=== PATIENT | female | born 1965 | race Caucasian/White ===

== ENCOUNTER 2018-10-03 10:55 | Emergency (ER) | payer OTHER ==
[~2018-10-03] VITALS: Ht 157.5 cm; Wt 82.9 kg
[~2018-10-03 10:55] MED LIST: ALBU18HF IH; HYDR-3498 PO; IBUP-1542 PO; LORA-186 PO; LORA1TAB PO; PANT20TA3 PO; PRAV40TA76 PO
[2018-10-03 11:02] VITALS: Ht 157.5 cm; Wt 82.9 kg
[2018-10-03] MEDS ORDERED: BELLADONNA/PHENOBARBITAL TAB PO STA (12:00)
[2018-10-03] MEDS ORDERED: FAMOTIDINE 20 MG INJ IV STA (12:00)
[2018-10-03] MEDS ORDERED: LIDOCAINE/MYLANTA 40 ML BTL PO STA (12:00)
[2018-10-03] MEDS ORDERED: SOD CHLORIDE 0.9% 500 ML IV STA (12:00)
[2018-10-03] MEDS ORDERED: ONDANSETRON 4 MG INJ IV STA (12:00)
[2018-10-03] MEDS ORDERED: FLUO20CA22 ORAL (12:43)
[2018-10-03] MEDS ORDERED: SULI150T PO (12:43)
[2018-10-03] MEDS ORDERED: METF-849 PO (12:43)
[2018-10-03] MEDS ORDERED: OMEP20CA16 PO (12:43)
--- NOTE | 2018-10-03 14:52 | ERD ---
ER Documentation Chief Complaint Chief Complaint ABD PAIN X 1 MONTH...WORSE WITH EATING HPI This is a 53-year-old female with a past medical history of hypertension, hyperlipidemia, GERD previously on Protonix and Prilosec, known cholelithiasis with previous episodes of biliary colic over the last month who is presenting with an exacerbated episode today. The patient endorses epigastric and right upper quadrant tenderness with nausea but no vomiting. It is exacerbated by eating. She does not endorse any alleviating factors. She does not endorse constipation or diarrhea. She does not endorse black or bloody or tarry stools. She denies any dysuria or hematuria or urgency or frequency. She does not endorse any vaginal complaints. The patient denies feeling sick recently. The patient denies fever or chills. The patient has had no headache or vision changes. The patient does not endorse neck or back pain. The patient denies lightheadedness or dizziness. The patient has had no chest pain or trouble breathing. The patient has had no focal deficits. The patient has had no weakness or numbness or tingling to the face or extremities. ROS All systems reviewed and are negative except as per history of present illness. Medications Home Meds Reported Medications Metformin* (Glucophage*) 500 Mg Tab, 500 MG PO WITH BREAKFAST DINNE, #30 TAB 10/03/18 Sulindac* (Sulindac*) 150 Mg Tablet, 150 MG PO BID, TAB 10/03/18 Omeprazole* (Omeprazole*) 20 Mg Capsule.dr, 20 MG PO DAILY, #30 CAP 10/03/18 Fluoxetine Hcl* (Fluoxetine Hcl*) 20 Mg Capsule, 1 CAP ORAL DAILY 10/03/18 Lorazepam* (Lorazepam*) 1 Mg Tablet, 1 MG PO DAILY PRN for ANXIETY, TAB 10/24/14 Discontinued Reported Medications Loratadine* (Claritin*) 10 Mg Tablet, 10 MG PO DAILY, TAB 10/24/14 Albuterol Sulfate* (Ventolin HFA*) 18 Gm Hfa.aer.ad, 1 PUFF IH DAILY, EA 10/24/14 Pantoprazole* (Pantoprazole*) 20 Mg Tablet.dr, 20 MG PO DAILY, TAB 10/24/14 Pravastatin Sodium* (Pravastatin Sodium*) 40 Mg Tablet, 40 MG PO HS, TAB 8/19/15 Discontinued Scripts Ibuprofen* (Motrin*) 600 Mg Tab, 600 MG PO Q6, #15 TAB Prov:DARREN ANGUIANO MD 02/08/16 Hydrocodone Bit/Acetaminophen (Anexsia 5-325 Mg Tablet) 1 Tab Tab, 1 TAB PO Q6H PRN for MODERATE PAIN LEVEL 4-6, #20 Prov:MARK JON NP 10/25/14 Allergies Allergies: Coded Allergies: No Known Allergy (Unverified , 10/03/18) PMhx/Soc History of Surgery: Yes (TUBAL LIGATION IN 97) Anesthesia Reaction: No Hx Neurological Disorder: No Hx Respiratory Disorders: Yes (ASTHMA) Hx Cardiac Disorders: No Hx Miscellaneous Medical Probl: Yes (ANXIETY) Hx Alcohol Use: No Hx Substance Use: No Hx Tobacco Use: No Smoking Status: Never smoker FmHx Family History: No diabetes Physical Exam Vitals Vital Signs Date Temp Pulse Resp B/P (MAP) Pulse Ox O2 O2 Flow FiO2 Time Delivery Rate 10/03/18 65 18 122/64 97 Room Air 13:55 (83) 10/03/18 98.5 82 16 126/61 97 11:02 (82) Physical Exam Const: No acute distress Head: Atraumatic Eyes: Normal Conjunctiva ENT: Normal External Ears, Nose and Mouth. Neck: Full range of motion. No meningismus. Resp: Clear to auscultation bilaterally Cardio: Regular rate and rhythm, no murmurs Abd: Soft, non distended. Mild right upper quadrant and epigastric tenderness. No guarding or rebound. Normal bowel sounds Skin: No petechiae or rashes Back: No midline or flank tenderness Ext: No cyanosis, or edema Neur: Awake and alert Psych: Normal Mood and Affect Result Diagram: 10/03/18 1215 10/03/18 1215 Results 24 hrs Laboratory Tests Test 10/03/18 12:15 10/03/18 12:23 White Blood Count 8.2 10^3/ul Red Blood Count 4.35 10^6/ul Hemoglobin 12.8 g/dl Hematocrit 38.4 % Mean Corpuscular Volume 88.3 fl Mean Corpuscular Hemoglobin 29.4 pg Mean Corpuscular Hemoglobin Concent 33.3 g/dl Red Cell Distribution Width 11.9 % Platelet Count 288 10^3/UL Mean Platelet Volume 9.6 fl Immature Granulocytes % 0.500 % Neutrophils % 52.0 % Lymphocytes % 39.9 % Monocytes % 4.4 % Eosinophils % 2.2 % Basophils % 1.0 % Nucleated Red Blood Cells % 0.0 /100WBC Immature Granulocytes # 0.040 10^3/ul Neutrophils # 4.3 10^3/ul Lymphocytes # 3.3 10^3/ul Monocytes # 0.4 10^3/ul Eosinophils # 0.2 10^3/ul Basophils # 0.1 10^3/ul Nucleated Red Blood Cells # 0.0 10^3/ul Sodium Level 142 mmol/L Potassium Level 4.1 mmol/L Chloride Level 107 mmol/L Carbon Dioxide Level 23 mmol/L Anion Gap 12 Blood Urea Nitrogen 16 mg/dl Creatinine 0.67 mg/dl Est Glomerular Filtrat Rate mL/min > 60 mL/min Glucose Level 123 mg/dl Calcium Level 9.7 mg/dl Total Bilirubin 0.4 mg/dl Direct Bilirubin 0.00 mg/dl Indirect Bilirubin 0.4 mg/dl Aspartate Amino Transf (AST/SGOT) 28 IU/L Alanine Aminotransferase (ALT/SGPT) 29 IU/L Alkaline Phosphatase 100 IU/L Total Protein 7.6 g/dl Albumin 4.0 g/dl Globulin 3.60 g/dl Albumin/Globulin Ratio 1.11 Lipase 73 U/L Urine Color STRAW Urine Clarity CLEAR Urine pH 7.0 Urine Specific Zwingle 1.002 Urine Ketones NEGATIVE mg/dL Urine Nitrite NEGATIVE mg/dL Urine Bilirubin NEGATIVE mg/dL Urine Urobilinogen NEGATIVE mg/dL Urine Leukocyte Esterase NEGATIVE Joel/ul Urine Hemoglobin NEGATIVE mg/dL Urine Glucose NEGATIVE mg/dL Urine Total Protein NEGATIVE mg/dl Current Medications Medications Dose Sig/Leland Start Time Status Last (Trade) Ordered Route PRN Stop Time Admin Dose Reason Admin Sodium 500 ml @ Q1H STAT 10/03/18 DC 10/03/18 Chloride 500 mls/hr IV 12:00 12:18 10/03/18 12:59 Ondansetron 4 mg ONCE STAT 10/03/18 DC 10/03/18 HCl (Zofran IV 12:00 12:18 Inj) 10/03/18 12:02 Famotidine 20 mg ONCE STAT 10/03/18 DC 10/03/18 (Pepcid Iv) IV 12:00 12:18 10/03/18 12:02 40 ml ONCE STAT 10/03/18 DC 10/03/18 Miscellaneous PO 12:00 12:18 Medication 10/03/18 12:02 (Gi Cocktail (2)) Belladonna/ 2 tab ONCE STAT 10/03/18 DC 10/03/18 Phenobarbital PO 12:00 12:18 () 10/03/18 12:02 Procedures/MDM MDM The patient's presentation warrants further investigation. Previous medical records, if available, were reviewed. LABS The patient's laboratory testing was obtained and reviewed. No emergent treatment was required unless described below. CBC: No E/o systemic infection or severe anemia or thrombocytopenia Chemistry: No E/o severe acidosis or alkalosis or renal failure or liver disease or diabetic ketoacidosis Lipase: No E/o pancreatitis Urine: No E/o acute infection or hematuria IMAGING Imaging and Radiology interpretation reviewed. Ultrasound gallbladder FINDINGS: The liver is normal in size measuring 16.1 cm and increased in echogenicity. There is no focal hepatic lesion. Color Doppler and pulsed Doppler sonography demonstrate normal antegrade flow in the portal vein. The gallbladder demonstrates cholelithiasis. There is no gallbladder wall thickening. The bile ducts are normal with the common bile duct measuring 7 mm in diameter. The visualized portions of the pancreas are unremarkable with obscuration of the tail of the pancreas. No free fluid is present. The right kidney measures 10.1 cm. There is normal echogenicity of the right kidney. There is no perinephric fluid collection. There is trace right hydronephrosis. IMPRESSION: Cholelithiasis. Hepatic steatosis. Underlying hepatocellular disease cannot be excluded. Dilated common bile duct. Cannot exclude choledocholithiasis. Follow-up is recommended. No ascites. Trace right hydronephrosis. Electronically viewed and signed by Kelsi Fields Physician on 10/03/2018 14:05 TREATMENT/DISPOSITION The patient presents for symptoms concerning for biliary colic. The patient does have cholelithiasis with a mildly dilated common bile duct. There is no evidence of obstructive cholestatic liver disease. I have decreased suspicion for choledocholithiasis at this time. The patient may follow-up in an outpatient setting. I do feel the patient likely requires cholecystectomy and will require outpatient follow-up with a general surgeon. This was explained to the patient. The patient also has epigastric tenderness with a long-standing history of gastritis. Gastritis versus GERD versus PUD are all possibilities. The patient was treated with IV fluids, Zofran, Pepcid and a GI cocktail with some improvement of her symptoms. The patient has Prilosec at home. She will be given a prescription for Pepcid as well. The patient may also benefit from Zofran. The patient presents with abdominal pain. The patient does not have any evidence of peritonitis. The patient does not have clinical symptoms concerning for mesenteric ischemia or ischemic colitis. The patient does not have left upper quadrant tenderness. I have low suspicion for pancreatitis. The patient does not have any right lower quadrant tenderness, or periumbilical tenderness. I have low suspicion for appendicitis. The patient does not have suprapubic tenderness. I have decreased suspicion for cystitis. The patient does not have any left lower quadrant tenderness, and I have low suspicion for diverticulosis or diverticulitis. The patient does not have any flank tenderness. The patient does not have gross hematuria. I have decreased suspicion for nephrolithiasis or renal colic. The patient does not have any palpable pulsatile mass or severe abdominal pain radiating to the back. I have low suspicion for aortic aneurysm, dissection or rupture. DISCHARGE Upon reevaluation of the patient, symptoms have improved. No emergent diagnoses were identified. At this time, I feel that the patient stable for discharge. The patient was instructed to follow-up with a primary care physician in 1-3 days. The patient will be given strict precautions with which to return to the emergency department. Prescriptions: Pepcid, Zofran The patient's blood pressure was elevated at greater than 120/80 while in the emergency department. The patient was otherwise stable with no evidence of hypertensive urgency or emergency. The patient does not require admission for blood pressure control. I have discussed with the patient the risks of hypertension. I have instructed the patient to return to the ER for any new or worsening symptoms including chest pain, shortness of breath, headache, blurred vision, confusion, nausea, vomiting or LOC. I have advised the patient to follow up with the primary care physician for outpatient monitoring and treatment for hypertension in 1-3 days. DISCLAIMER Inadvertent spelling and grammatical errors are likely due to EHR/dictation software use and do not reflect on the overall quality of patient care. Note yahir t the electronic time recorded on this note does not necessarily reflect the actual time of the patient encounter. Departure Diagnosis: Primary Impression: Biliary colic Additional Impressions: Cholelithiasis Cholelithiasis location: bile duct Cholecystitis presence: without cholecystitis Biliary obstruction: without biliary obstruction Qualified Codes: K80.50 - Calculus of bile duct without cholangitis or cholecystitis without obstruction Steatosis Abdominal pain Abdominal location: upper abdomen, unspecified Qualified Codes: R10.10 - Upper abdominal pain, unspecified Nausea & vomiting Vomiting type: unspecified Vomiting Intractability: non-intractable Qualified Codes: R11.2 - Nausea with vomiting, unspecified Condition: Stable Patient Instructions: Gallstones, Nausea and Vomiting-Adult, Abdominal Pain Additional Instructions: Thank you for for coming to [facility] for your care today. Please ask your nurse or provider if you have questions about your care today and do not leave until all your questions have been answered. Please use any medications given as directed and follow-up with your doctor (or the doctor you were referred to) in the next 1-3 days. If you do not have a primary care doctor you may follow up at the [facility] or [facility] (listed below). You may also use motrin and tylenol as needed for fever and/or pain unless instructed otherwise by your provider or nurse. Indications for more urgent follow-up have been discussed, but you may return to the Emergency Department at ANY time for any worrisome or worsening symptoms. If you have abdominal pain, please know that no test or exam you received is perfect and you should follow up within 8 hours for continued pain. If you had any imaging studies today, such as an X-Ray or CT Scan, these studies will be reviewed later by a radiologist. You will be called if there are important findings that were not identified today, so make sure the contact information you provided at registration is correct. If you received any narcotic pain control medicine today, such as Vicodin, Morphine or Dilaudid, your coordination and judgment may be affected for a number of hours. Please do not drive or operate heavy machinery, and you may want someone to assist you at home. If you were given a prescription for narcotic medication, be aware that it is very addictive- use sparingly and only if necessary. PLEASE SEEK FURTHER EVALUATION AND MANAGEMENT AT YOUR DOCTORS OFFICE WITHIN THE NEXT 1-3 DAYS. IT IS YOUR RESPONSIBILITY TO MAKE AN APPOINTMENT FOR FOLOW-UP CARE. IF YOU HAVE A PRIMARY DOCTOR, PLEASE CALL THEIR OFFICE TO SCHEDULE AN APPOINTMENT FOR FOLLOW UP. IF YOU DO NOT HAVE A PRIMARY DOCTOR YOU CAN CALL OUR PHYSICIAN REFERRAL HOTLINE AT IF YOU CAN NOT AFFORD TO SEE A PHYSICIAN YOU CAN CHOSE FROM THE FOLLOWING [facility]ICS: [facility] [address] [facility] [address] [facility]. [facility] [address] [facility] [address] [facility]. [facility] [address] [facility]. [facility]. [address] JENNIFER GERONIMO MD Oct 03, 2018 14:52
[2018-10-03] MEDS ORDERED: FAMO-96 PO (15:53)
[2018-10-03] MEDS ORDERED: ONDA4TAB8 PO (15:53)
[2018-10-03 16:29] VITALS: BP 125/81; PULSE 70; RESP 16
== END 2018-10-03 16:33 | disposition home or self-care (01) ==
LOC: E/R 10:55
DX: K80.50 Calculus of bile duct without cholangitis or cholecystitis without obstruction (principal); I10 Essential (primary) hypertension; J45.909 Unspecified asthma, uncomplicated; Z79.84 Long term (current) use of oral hypoglycemic drugs
CPT/HCPCS: 76705; 80053; 81003; 83690; 85025; J2405; J7040; Z7610; 36415; 96361; 96374; 96375